=== PATIENT | female | born 1975 | race Caucasian/White ===

== ENCOUNTER 2021-07-23 11:52 | Emergency (ER) | payer SELFPAY ==
[~2021-07-23] VITALS: Ht 175.3 cm; Wt 65.9 kg
[2021-07-23 12:15] VITALS: BP 129/82
[2021-07-23] MEDS ORDERED: morphine 4 MG/ML inj SYRINge IV PRN (12:15)
[2021-07-23] MEDS ORDERED: ketorolac trometh. 30mg/ml inj. IV ONE (12:15)
[2021-07-23] MEDS ORDERED: ondansetron/PF 4mg/2ml inj IV ONE (12:15)
[2021-07-23] MEDS ORDERED: normal saline 1000ML IV soln IVB ONE (12:15)
[2021-07-23 13:01] LABS: BASOPHILS % (AUTO) 0.5 % (0-1); EOSINOPHILS # (AUTO) 0.1 X10'3 (0-0.9); EOSINOPHILS % (AUTO) 1.9 % (0-6); HEMATOCRIT 38.9 % (35.0-45.0); HEMOGLOBIN 13.2 g/dl (12.0-16.0); LYMPHOCYTES # (AUTO) 1.4 X10'3 (1.1-4.8); LYMPHOCYTES % (AUTO) 29.6 % (21-51); MEAN CORPUSCULAR HEMOGLOBIN 36.4 PG (27.0-31.0); MEAN CORPUSCULAR HGB CONC 33.9 g/dL (33.0-36.5); MEAN CORPUSCULAR VOLUME 107.5 FL (78-98); MEAN PLATELET VOLUME 8.4 FL (7.4-10.4); MONOCYTES # (AUTO) 0.3 X10'3 (0-0.9); MONOCYTES % (AUTO) 7.1 % (2-12); NEUTROPHILS # (AUTO) 2.8 X10'3 (1.8-7.7); NEUTROPHILS % (AUTO) 60.9 % (42-75); PLATELET COUNT 252 X10'3 (140-440); RED BLOOD COUNT 3.62 X10'6 (4.20-5.60); RED CELL DISTRIBUTION WIDTH 14.5 % (11.5-14.5); WHITE BLOOD COUNT 4.6 X10'3 (4.5-11.0)
[2021-07-23 13:14] LABS: ALANINE AMINOTRANSFERASE 20 U/L (12-78); ALBUMIN 3.9 G/DL (3.4-5.0); ALBUMIN/GLOBULIN RATIO 1.1 (1.1-1.5); ALKALINE PHOSPHATASE 80 IU/L (46-116); ANION GAP 13 (8-16); ASPARTATE AMINO TRANSFERASE 16 U/L (10-37); BILIRUBIN,TOTAL 0.7 MG/DL (0.1-1.0); BLOOD UREA NITROGEN 10 MG/DL (7-18); BUN/CREATININE RATIO 13.3 (6.6-38.0); CALCIUM 8.9 MG/DL (8.5-10.1); CHLORIDE 104 MMOL/L (99-107); CREATININE 0.75 MG/DL (0.40-0.90); GLUCOSE 109 MG/DL (70-104); POTASSIUM 3.3 MMOL/L (3.5-5.1); SODIUM 138 MMOL/L (135-145); TOTAL CARBON DIOXIDE 21.5 MMOL/L (24-32); TOTAL PROTEIN 7.3 G/DL (6.4-8.2); eGFR 84 ML/MIN
[2021-07-23] MEDS ORDERED: LIDO700A32 TOP (14:12)
[2021-07-23] MEDS ORDERED: KETO10TA2 PO (14:12)
[2021-07-23] MEDS ORDERED: HYDR-3965 PO (14:12)
== END 2021-07-23 14:18 | disposition home or self-care (01) ==
LOC: ER 11:54
DX: S22.31XA Fracture of one rib, right side, initial encounter for closed fracture (principal); R10.84 Generalized abdominal pain; Z79.899 Other long term (current) drug therapy; X58.XXXA Exposure to other specified factors, initial encounter; Y93.89 Activity, other specified; Y92.89 Other specified places as the place of occurrence of the external cause; Y99.8 Other external cause status
CPT/HCPCS: 36415; 71101; 74176; 80053; 85025; 99285

== ENCOUNTER 2025-04-25 08:29 | Emergency (ER) | payer OTHER ==
[~2025-04-25] VITALS: Ht 175.3 cm; Wt 73.4 kg
[~2025-04-25 08:29] MED LIST: KETO10TA2 PO; LIDO-52 TOP
[2025-04-25 08:42] VITALS: BP 160/100; PULSE 88; RESP 18; TEMP 97.9; O2SAT 99
--- NOTE | 2025-04-25 11:16 | Physician Documentation ---
History of Present Illness ~ Chief Complaint: Back Pain Stated Complaint: BACK PAIN Time Seen by MD: 09:26 HPI Patient is seen today with complaints of low back pain as well as lower pelvic pain states he is perimenopausal and feels as though she is having some bladder or rectal prolapse. Patient states she normally sees Dr. Arizmendi for her OB Gyne issues. Patient has no other concern or complaint at this time. She denies any blood in stool or urine or chest pain or shortness of breath or abdominal pain or vomiting, diarrhea. Medication Reconciliation Allergies: Coded Allergies: No Known Allergies (Unverified , 07/23/21) Scheduled Ketorolac Tromethamine (Ketorolac Tromethamine), 1 TAB PO Q6H PRN Lidocaine (Lidoderm), 1 PATCH TOP BID Past Medical History Past Medical History: No Pertinent History Past Surgical History: noncontributory Alcohol Use: None Drug Use: none Lives In: Home Review of Systems Constitutional: Denies: chills, fever, weakness Eyes: Denies: pain, blurred vision ENT: Denies: ear pain, nose pain, throat pain, mouth pain Respiratory: Denies: cough, shortness of breath Cardiovascular: Denies: chest pain, palpitations Gastrointestinal: Denies: abdominal pain, nausea, vomiting Genitourinary: Denies: burning, dysuria Female Genitalia: Denies: vaginal discharge, pelvic pain Neurological: Denies: headache, dizziness Musculoskeletal: Denies: pain, swelling Integumentary: Denies: rash, lesions Allergic/Immunologic: Denies: hives, itching Hematologic/Lymphatic: Denies: no symptoms reported Psychiatric: Denies: depression, anxiety Physical Exam Physical Exam Vital Signs: Temperature: 97.9, Source: Oral, Heart Rate: 88, Respiratory Rate: 18, BP: 160/100, Pulse Oximetry: 99, Weight: 73.400 Oxygen Flow Rate: 0 Physical Exam General: Awake and Alert, no acute distress. HEENT: Conjunctiva pink, Sclera clear, Mucus Membranes moist. Neck: Supple without masses and tenderness. Resp: Unlabored. Lungs clear to auscultation bilaterally. Heart: Regular Rate and rhythm, normal S1 and S2 without murmur, rub or gallop. Abdomen: Soft, nondistended, mild lower abdominal tenderness without guarding and without rebound tenderness he tenderness. Extremities: No cyanosis,clubbing or edema. Skin: Warm and Dry. Progress Results/Orders Results/Orders Vital Signs 04/25/25 08:42 Temp 97.9 Pulse 88 Resp 18 B/P (MAP) 160/100 Pulse Ox 99 O2 Flow Rate 0 Medical Decision Making Additional information obtaine: N/A Findings Patient is seen today with complaints of low back pain as well as lower pelvic pain states he is perimenopausal and feels as though she is having some bladder or rectal prolapse. Patient states she normally sees Dr. Arizmendi for her OB Gyne issues. Patient has no other concern or complaint at this time. She denies any blood in stool or urine or chest pain or shortness of breath or abdominal pain or vomiting, diarrhea. Patient denies any dysuria or urinary frequency or urgency and states she does not have a UTI. She states she knows with a feels like. Patient will follow up immediately with Dr. Arizmendi as patient states he actually has an appointment this afternoon. Patient declined any further testing or urinalysis. Patient will return to ED with any worsening, concerning or changing symptoms. Differential Dx:Considerations: AAA, Appendicitis, Pyelonephritis, Strain, Urinary tract infection Departure Disposition: HOME / SELF CARE / HOMELESS Impression: Primary Impression: Low back pain Qualified Codes: M54.50 - Low back pain, unspecified Condition: Stable Additional Instructions: Patient will follow up immediately with Dr. Arizmendi as patient states he actually has an appointment this afternoon. Patient declined any further testing or urinalysis. Patient will return to ED with any worsening, concerning or changing symptoms. Referrals: NO PRIMARY CARE PROVIDER (PCP) Signature Scribe Signature: No scribe Attestation: No scribe EV GAXIOLA PAC Apr 25, 2025 11:16
== END 2025-04-25 11:21 | disposition home or self-care (01) ==
LOC: ER 08:30
DX: M54.50 Low back pain, unspecified (principal); Z79.899 Other long term (current) drug therapy
CPT/HCPCS: 99282